=== PATIENT | female | born 1985 | race Caucasian/White ===

== ENCOUNTER 2022-12-10 17:57 | Emergency (ER) | payer OTHER, BC, MEDICAID, SELFPAY ==
[2022-12-10 18:05] VITALS: BP 131/93; PULSE 62; RESP 16; TEMP 36.4; O2SAT 100
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
[2022-12-10 18:26] VITALS: BP 115/83; PULSE 60; O2SAT 99
[2022-12-10] MEDS: morphine 4 mg/mL SDV 1 mL IM (18:53)
[2022-12-10] MEDS: acetaminophen 500 mg Tablet 1000 MG PO (18:53)
[2022-12-10 18:56] VITALS: BP 113/81; PULSE 58; O2SAT 100
[2022-12-10 19:35] LABS: HCG Qualitative Urine. Negative (Negative)
[2022-12-10] MEDS: ondansetron 2 mg/ML SDV 2 mL 4 MG IVP (21:29)
--- NOTE | 2022-12-17 11:04 | DCPLANNER ---
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
== END 2022-12-10 21:41 | disposition home or self-care (01) ==
PROVIDERS: Emergency Provider Emergency Medicine
DX: S13.4XXA Sprain of ligaments of cervical spine, initial encounter (principal); M79.602 Pain in left arm; V89.2XXA Person injured in unspecified motor-vehicle accident, traffic, initial encounter
CPT/HCPCS: 71260; 72125; 73060; 74177; 81025; 96372; 96374; 99285; J2270; J2405; Q9967

== ENCOUNTER 2023-01-18 14:24 | Outpatient (CLI) | payer BC, MEDICAID, SELFPAY ==
--- NOTE | 2023-01-18 14:38 | US_ITS ---
WS: [id number] THYROID ULTRASOUND HISTORY: THYROID NODULE, LEFT COMPARISON: None available. Right lobe: 1.5 cm x 1.6 cm x 4.6 cm (w x ap x l). Volume: 5.7 cm3. Very slightly prominent thyroid. There are multiple very small hypoechoic nodules. Colloid cyst in th e superior pole measuring 4 x 3 x 6 mm. Largest nodule is hypoechoic in the mid gland measuring 6 x 5 x 8 mm. Left lobe: 2.1 cm x 1.9 cm x 5.0 cm (w x ap x l). Volume: 10.6 cm3. Mildly enlarged gland. Mixed cystic and solid nodule in the mid gland measures 1.5 x 1.5 x 2.2 cm. Ad ditional nodule in the inferior pole measures 1.2 x 1.0 x 1.4 cm. Isthmus: 0.3 cm. US/US thyroid [id number] IMPRESSION: 1. 2 solid nodules in the LEFT thyroid. Recommend ultrasound-guided fine-needl e aspiration of each of these nodules. 2. Benign-appearing nodules in the RIGHT thyroid.
== END 2023-01-18 14:25 | disposition home or self-care (01) ==
LOC: RAD 14:27
PROVIDERS: PCP Nurse Practitioner Family; Visit Provider Nurse Practitioner Family
DX: E04.1 Nontoxic single thyroid nodule (principal)
CPT/HCPCS: 76536